=== PATIENT | male | born 1945 | race Caucasian/White ===

== ENCOUNTER 2021-07-31 11:10 | Emergency (ER) | payer OTHER ==
[2021-07-31 12:08] LABS: Absolute Lymphocytes (CBC) 3.3 K/uL (0.7-4.9); Hematocrit 46.5 % (39.6-49.0); Lymphocytes % 40.3 % (15.3-44.8); MPV 7.7 fL (7.6-11.3); RBC Red Blood Cell Count 5.04 M/uL (4.33-5.43)
[2021-07-31 12:12] LABS: Urine Blood 3+ (Negative); Urine Glucose Negative (Negative); Urine Protein 2+ (Negative)
[2021-07-31 13:11] LABS: Blood Morphology Comment NOT SEEN (NOT SEEN); Platelet Estimate ADEQ; White Blood Cell Scan OK (OK)
[2021-07-31] MEDS ORDERED: ACETAMINOPHEN 500 MG TAB PO PRN (13:29)
[2021-07-31] MEDS ORDERED: MORPHINE 2 MG/ML SYR IV PRN (13:29)
[2021-07-31] MEDS ORDERED: ONDANSETRON 4 MG/2 ML VIAL IV PRN (13:29)
--- NOTE | 2021-07-31 13:34 | P.HP ---
Certification for Inpatient Patient admitted to: Observation With expected LOS: <2 Midnights Patient will require the following post-hospital care: None Practitioner: I am a practitioner with admitting privileges, knowledge of patient current condition, hospital course, and medical plan of care. Services: Services provided to patient in accordance with Admission requirements found in Title 42 Section 412.3 of the Code of Federal Regulations Patient History Date of Service: 07/31/21 Reason for admission: Acute kidney injury History of Present Illness: Patient is a 75-year-old gentleman who came to the hospital with intractable nausea and vomiting. Patient's creatinine was elevated. He has been sick for the last 24 hours. In the emergency room he was given aggressive IV hydration. Will do a renal ultrasound and repeat his creatinine level. Patient will be admitted for observation. - Past Medical/Surgical History -: Prostate cancer Past Surgical History: Patient denies surgical history - Family History Father Family History: Reviewed- Non-Contributory - Social History Smoking Status: Never smoker Alcohol use: No CD- Drugs: No Review of Systems 10-point ROS is otherwise unremarkable Physical Examination - Vital Signs Temperature: 98 F Blood Pressure: 140/80 Pulse: 88 Respirations: 18 Pulse Ox (%): 98 - Physical Exam General: Alert, In no apparent distress HEENT: Atraumatic, PERRLA, Mucous membr. moist/pink, EOMI, Sclerae nonicteric Neck: Supple, 2+ carotid pulse no bruit, No LAD, Without JVD or thyroid abnormality Respiratory: Clear to auscultation bilaterally, Normal air movement Cardiovascular: Regular rate/rhythm, Normal S1 S2 Gastrointestinal: Normal bowel sounds, No tenderness Musculoskeletal: No tenderness Integumentary: No rashes Neurological: Normal gait, Normal speech, Normal strength at 5/5 x4 extr, Normal tone, Normal affect Lymphatics: No axilla or inguinal lymphadenopathy - Studies Laboratory Data (last 24 hrs) 07/31/21 12:00: WBC 8.10, Hgb 15.8, Hct 46.5, Plt Count 197 Assessment & Plan - Problems (Diagnosis) (1) Acute kidney injury Current Visit: Yes Status: Acute (2) History of prostate cancer Current Visit: Yes Status: Acute (3) Viral gastroenteritis Current Visit: Yes Status: Acute - Advance Directives Does patient have a Living Will: No Does patient have a Durable POA for Healthcare: No
[2021-07-31] MEDS ORDERED: NA CHLORIDE 0.9% 1,000 ML IV SCH (14:00)
--- NOTE | 2021-07-31 14:48 | RAD REPORT ---
EXAM DESCRIPTION: CTAbdomen Pelvis W Contrast - 07/31/2021 2:28 pm CLINICAL HISTORY: Abdominal pain. urine retention COMPARISON: No comparisons TECHNIQUE: Biphasic CT imaging of the abdomen and pelvis was performed with 100 ml non-ionic IV cont rast. All CT scans are performed using dose optimization technique as appropriate and may include automated exposure control or mA/KV adjustment according to patient size. FINDINGS: The lung bases are clear. The liver is diffusely fatty. Spleen, pancreas, adrenal glands and kidneys are within normal limits. No bowel obstruction, free air, free fluid or abscess. Small fat containing umbilical hernia. The maria m endix is normal. No evidence of significant lymphadenopathy. Aortoiliac atherosclerosis. No suspicious bony findings. Urinary catheter is in place. Large fat containing inguinal hernias are present bilaterally. The righ t inguinal hernia appears to contain a portion of the urinary bladder. IMPRESSION: Mild diffuse fatty liver. Large bilateral inguinal hernias are present. These are predominately containing fat all of the right -sided hernia contains a small portion of the urinary bladder.
[2021-07-31 15:20] LABS: Potassium 3.7 mmol/L (3.5-5.1)
--- NOTE | 2021-07-31 15:53 | ER ---
Nurse's Notes [facility] Name: Jarrod Diaz Age: 75 yrs Sex: Male : 1945 Arrival Date: 07/31/2021 Time: 11:11 Bed 13 Private MD: Diagnosis: Retention of urine, unspecified;Bilateral inguinal hernia, without obstruction or gangrene, not specified as recurrent Presentation: 07/31 11:19 Chief complaint: Patient states: he is having a hard time urinating. Patient reports ap3 feeling flushed, and is having severe pain in his bladder area. Coronavirus screen: At this time, the client does not indicate any symptoms associated with coronavirus-19. Ebola Screen: No symptoms or risks identified at this time. Initial Sepsis Screen: Does the patient meet any 2 criteria? HR > 90 bpm. Does the patient have a suspected source of infection? No. Patient's initial sepsis screen is negative. Risk Assessment: Do you want to hurt yourself or someone else? Patient reports no desire to harm self or others. Onset of symptoms was July 31, 2021. 11:19 Method Of Arrival: Ambulatory ap3 11:19 Acuity: YOLANDA 3 ap3 Triage Assessment: 11:22 General: Appears uncomfortable, Behavior is cooperative, restless. Pain: Complains of ap3 pain in suprapubic area, right lower quadrant and left lower quadrant Pain currently is 7 out of 10 on a pain scale. Pain began gradually. Neuro: Level of Consciousness is awake, alert, obeys commands, Oriented to person, place, time, situation, Appropriate for age Speech is normal. Cardiovascular: Patient's skin is warm and dry. Respiratory: Airway is patent Respiratory effort is even, unlabored, Respiratory pattern is regular, symmetrical. : Reports inability to void. Historical: - Allergies: 11:21 No Known Allergies; ap3 - Home Meds: 11:21 aspirin 81 mg Oral cpDR 81 mg [Active]; ap3 - PMHx: 11:21 bladder issues; ap3 - Immunization history:: Client reports receiving the 2nd dose of the Covid vaccine, Pneumococcal vaccine is up to date, Flu vaccine is not up to date. - Social history:: Smoking status: Patient denies any tobacco usage or history of. Screenin:23 Abuse screen: Denies threats or abuse. Nutritional screening: No deficits noted. ap3 Tuberculosis screening: No symptoms or risk factors identified. 12:21 Fall Risk None identified. cb5 Assessment: 11:25 General: Appears distressed, uncomfortable, well groomed, well developed, Behavior is cb5 calm, cooperative. Pain: Complains of pain in abdomen and left lower quadrant and right lower quadrant and suprapubic area Pain currently is 7 out of 10 on a pain scale. Neuro: No deficits noted. Level of Consciousness is awake, alert, obeys commands, Oriented to person, place, time. Cardiovascular: No deficits noted. Respiratory: No deficits noted. GI: No deficits noted. : Bladder is distended Reports inability to void, difficulty urinating, starts and stops stream. EENT: No deficits noted. Derm: No deficits noted. Musculoskeletal: No deficits noted. 12:30 Reassessment: Patient and/or family updated on plan of care and expected duration. Pain cb5 level reassessed. 13:12 Reassessment: Patient and/or family updated on plan of care and expected duration. Pain cb5 level reassessed. Patient states symptoms have improved. 14:30 Reassessment: Patient and/or family updated on plan of care and expected duration. Pain cb5 level reassessed. 15:30 Reassessment: Patient and/or family updated on plan of care and expected duration. Pain cb5 level reassessed. 16:30 Reassessment: Patient and/or family updated on plan of care and expected duration. Pain cb5 level reassessed. 16:30 Reassessment: changed patients moran tubing and bag to leg bag. Instructed patient hot cb5 to empty leg bag, pt verbally demonstrated back. . Vital Signs: 11:19 Pulse 139; Resp 19; Temp 99.4; Pulse Ox 100% ; Weight 63.5 kg; Height 5 ft. 9 in. ap3 (175.26 cm); Pain 7/10; 12:55 BP 128 / 72; Pulse 82; Resp 16; Temp 98.4; Pulse Ox 98% ; Pain 0/10; cb5 16:30 BP 125 / 71; Pulse 78; Resp 16; Temp 98.6; Pulse Ox 98% ; Pain 0/10; cb5 11:19 Body Mass Index 20.67 (63.50 kg, 175.26 cm) ap3 ED Course: 11:11 Patient arrived in ED. am2 11:21 Triage completed. ap3 11:23 Arm band placed on left wrist. ap3 11:24 [facility]C [facility] kb 11:24 Elan Saldivar MD is Attending Physician. kb 11:24 Joy Masters, RN is Primary Nurse. cb5 11:45 Moran cath inserted, using sterile technique, 14 Fr., by il, balloon inflated, to cb5 gravity drainage, other 14 fr coude indwelling f/c inserted successfully using process tech, with yellow pink drainage in return to bedside bag. Patient meng well. 12:19 Basic Metabolic Panel Sent. cb5 12:19 Urine Microscopic Only Sent. cb5 12:19 Basic Metabolic Panel Sent. cb5 12:19 CBC Smear Scan Sent. cb5 12:21 Patient has correct armband on for positive identification. Call light in reach. Side cb5 rails up X 1. 13:12 No provider procedures requiring assistance completed. cb5 13:12 Patient did not have IV access during this emergency room visit. cb5 15:51 Agusto Dodson MD is Referral Physician. kb 15:51 Jac Rodriguez MD is Referral Physician. kb Administered Medications: No medications were administered Output: 17:02 Urine: 1800ml (Moran); Total: 1800ml. cb5 Outcome: 13:11 Discharged to home with family. cb5 13:11 Condition: stable 13:11 Discharge instructions given to patient. 15:52 Discharge ordered by MD. kb 17:03 Patient left the ED. cb5 Signatures: Dian Shore FNP-C FNP-Lissa Gray Amanda, RN RN ap3 Joy Masters, RN RN cb5
--- NOTE | 2021-07-31 15:53 | EDPHYS ---
Physician Documentation [facility] Name: Jarrod Diaz Age: 75 yrs Sex: Male : 1945 Arrival Date: 07/31/2021 Time: 11:11 Bed 13 Private MD: ED Physician Elan Saldivar HPI: 07/31 15:50 This 75 yrs old Unknown Male presents to ER via Ambulatory with complaints of Urinary kb Retention. 15:50 The patient presents with urinary symptoms, retention. Onset: The symptoms/episode kb began/occurred today. Modifying factors: The symptoms are alleviated by nothing, the symptoms are aggravated by nothing. Associated signs and symptoms: The patient has no apparent associated signs or symptoms. Severity of symptoms: At their worst the symptoms were moderate, in the emergency department the symptoms are unchanged. The patient has not experienced similar symptoms in the past. The patient has not recently seen a physician. Pt reports urinary retention that has been intermittent for a few days, but constant today. . Historical: - Allergies: 11:21 No Known Allergies; ap3 - Home Meds: 11:21 aspirin 81 mg Oral cpDR 81 mg [Active]; ap3 - PMHx: 11:21 bladder issues; ap3 - Immunization history:: Client reports receiving the 2nd dose of the Covid vaccine, Pneumococcal vaccine is up to date, Flu vaccine is not up to date. - Social history:: Smoking status: Patient denies any tobacco usage or history of. ROS: 15:49 Constitutional: Negative for fever, chills, and weight loss. kb 15:49 Abdomen/GI: Positive for abdominal pain, of the suprapubic area. 15:49 : Positive for difficulty urinating. 15:49 All other systems are negative. Exam: 15:49 Constitutional: This is a well developed, well nourished patient who is awake, alert, kb and in no acute distress. Head/Face: Normocephalic, atraumatic. ENT: Moist Mucous membranes Cardiovascular: Regular rate and rhythm with a normal S1 and S2. No gallops, murmurs, or rubs. No pulse deficits. Respiratory: Respirations even and unlabored. No increased work of breathing. Talking in full sentences Skin: Warm, dry with normal turgor. Normal color. MS/ Extremity: Pulses equal, no cyanosis. Neurovascular intact. Full, normal range of motion. Neuro: Awake and alert, GCS 15, oriented to person, place, time, and situation. Moves all extremities. Normal gait. Psych: Awake, alert, with orientation to person, place and time. Behavior, mood, and affect are within normal limits. 15:49 Abdomen/GI: Inspection: abdomen appears normal, Bowel sounds: normal, Palpation: soft, in all quadrants, mild abdominal tenderness, in the suprapubic area. Vital Signs: 11:19 Pulse 139; Resp 19; Temp 99.4; Pulse Ox 100% ; Weight 63.5 kg; Height 5 ft. 9 in. ap3 (175.26 cm); Pain 7/10; 12:55 BP 128 / 72; Pulse 82; Resp 16; Temp 98.4; Pulse Ox 98% ; Pain 0/10; cb5 16:30 BP 125 / 71; Pulse 78; Resp 16; Temp 98.6; Pulse Ox 98% ; Pain 0/10; cb5 11:19 Body Mass Index 20.67 (63.50 kg, 175.26 cm) ap3 MDM: 11:25 Patient medically screened. 15:04 Data reviewed: vital signs, nurses notes. Data interpreted: Pulse oximetry: on room air kb is 98 %. Interpretation: normal. Physician consultation: Jac Rodriguez MD was called at 15:04, was contacted at 15:04, regarding consult, patient's condition, and will see patient in office. 15:25 Counseling: I had a detailed discussion with the patient and/or guardian regarding: the kb historical points, exam findings, and any diagnostic results supporting the discharge/admit diagnosis, lab results, radiology results, the need for outpatient follow up, a general surgeon, a urologist, to return to the emergency department if symptoms worsen or persist or if there are any questions or concerns that arise at home. 07/31 11:28 Order name: Basic Metabolic Panel kb 07/31 11:28 Order name: CBC with Diff; Complete Time: 13:21 kb 07/31 11:28 Order name: Urine Microscopic Only kb 07/31 11:29 Order name: Basic Metabolic Panel [facility] 07/31 12:09 Order name: CBC Smear Scan; Complete Time: 13:21 [facility] 07/31 12:12 Order name: Urine Dipstick-Ancillary; Complete Time: 12:13 [facility] 07/31 11:29 Order name: CT Abd/Pelvis - IV Contrast Only 07/31 13:30 Order name: Comprehensive Metabolic Panel [facility] 07/31 13:30 Order name: CBC with Automated Diff [facility] 07/31 13:31 Order name: Creatine Phosphokinase [facility] 07/31 15:20 Order name: Basic Metabolic Panel; Complete Time: 15:25 [facility] 07/31 11:28 Order name: Mayo; Complete Time: 12:19 kb 07/31 11:28 Order name: IV Saline Lock; Complete Time: 12:19 kb 07/31 11:28 Order name: Labs collected and sent; Complete Time: 12:19 kb 07/31 11:28 Order name: Urine Dipstick-Ancillary (obtain specimen); Complete Time: 12:19 kb 07/31 13:30 Order name: Full Liquid [facility] 07/31 13:31 Order name: Renal Ultrasound-Complete [facility] 07/31 14:49 Order name: CT; Complete Time: 14:55 [facility] 07/31 15:44 Order name: Leg Bag; Complete Time: 16:58 kb Administered Medications: No medications were administered Disposition Summary: 07/31/21 15:52 Discharge Ordered Location: Home kb Condition: Stable kb Diagnosis - Retention of urine, unspecified kb - Bilateral inguinal hernia, without obstruction or gangrene, not specified as kb recurrent Followup: kb - With: Emergency Department - When: As needed - Reason: Worsening of condition Followup: kb - With: Private Physician - When: 2 - 3 days - Reason: Recheck today's complaints, Continuance of care, Re-evaluation by your physician Followup: kb - With: Agusto Dodson MD - When: 2 - 3 days - Reason: Recheck today's complaints Followup: kb - With: Jac Rodriguez MD - When: 2 - 3 days - Reason: Recheck today's complaints Discharge Instructions: - Discharge Summary Sheet kb - Inguinal Hernia, Adult, [id number] kb - Acute Urinary Retention, Male, [id number] kb Forms: - Medication Reconciliation Form kb - Thank You Letter kb - Antibiotic Education kb - Prescription Opioid Use kb Prescriptions: - Flomax 0.4 mg Oral capsule - take 1 capsule by ORAL route once daily 1/2 hour following the same meal each kb day; 30 capsule; Refills: 0, Product Selection Permitted Signatures: Dispatcher [employer] Dian Pryor, ORCHARDIST-C ORCHARDIST-Robelb Lissa Biggs, RN RN ap3
[2021-07-31 17:51] VITALS: O2SAT 98
[2021-07-31 18:01] VITALS: BP 125/71; TEMP 98.6
== END 2021-07-31 17:03 | disposition home or self-care (01) ==
LOC: ER 11:10 → UNDOADMOB 13:29 → ERHOLD 13:29 → ER 17:03
DX: R33.9 Retention of urine, unspecified (principal); K40.20 Bilateral inguinal hernia, without obstruction or gangrene, not specified as recurrent; Z79.82 Long term (current) use of aspirin
CPT/HCPCS: 85025; 80048; 36415; 82565; 81003; 74177; 51702; 99284; Q9967